=== PATIENT | female | born 1980 | race African-American/Black ===

== ENCOUNTER 2017-04-14 13:05 | Emergency (ER) | payer MEDICAID, OTHER ==
[~2017-04-14] VITALS: Ht 154.9 cm; Wt 116.0 kg
[2017-04-14] MEDS ORDERED: PREDNISONE 20MG TABLET PO STA (15:26)
[2017-04-14] MEDS ORDERED: ALBUTEROL (0.083%) 2.5MG/3ML NEB HHN STA (15:26)
[2017-04-14] MEDS ORDERED: IPRATROPIUM BROMIDE (0.02%) 0.5MG/2.5ML NEB HHN STA (15:26)
[2017-04-14 16:41] VITALS: BP 107/59
== END 2017-04-14 17:54 | disposition home or self-care (01) ==
LOC: ER 15:19
DX: R05 Cough (principal); R06.2 Wheezing; R50.9 Fever, unspecified; J45.909 Unspecified asthma, uncomplicated; F17.200 Nicotine dependence, unspecified, uncomplicated
CPT/HCPCS: 71010; 81025; 94640; 99283; J7512; J7611

== ENCOUNTER 2017-04-16 17:45 | Emergency (ER) | payer MEDICAID ==
[~2017-04-16] VITALS: Ht 154.9 cm; Wt 113.0 kg
[2017-04-16] MEDS ORDERED: IPRATROPIUM BROMIDE (0.02%) 0.5MG/2.5ML NEB HHN STA (18:25)
[2017-04-16] MEDS ORDERED: PREDNISONE 20MG TABLET PO STA (18:25)
[2017-04-16] MEDS ORDERED: ALBUTEROL (0.083%) 2.5MG/3ML NEB HHN STA (18:25)
[2017-04-16 19:31] LABS: HCG SCREEN NEGATIVE
[2017-04-16 20:03] VITALS: BP 144/71
== END 2017-04-16 20:00 | disposition home or self-care (01) ==
LOC: ER 17:45
DX: J45.901 Unspecified asthma with (acute) exacerbation (principal); F17.210 Nicotine dependence, cigarettes, uncomplicated
CPT/HCPCS: 84703; 93005; 94640; 99285; J7512; J7611

== ENCOUNTER 2017-04-18 11:02 | Emergency (ER) | payer MEDICAID ==
[~2017-04-18] VITALS: Ht 154.9 cm; Wt 116.0 kg
[2017-04-18] MEDS ORDERED: DEXAMETHASONE 10 MG/ML VIAL IV STA (12:48)
[2017-04-18] MEDS ORDERED: IPRATROPIUM BROMIDE (0.02%) 0.5MG/2.5ML NEB HHN STA (12:48)
[2017-04-18] MEDS ORDERED: ALBUTEROL (0.083%) 2.5MG/3ML NEB HHN STA (12:48)
[2017-04-18] MEDS ORDERED: BENZONATATE 100MG CAPSULE PO ONE (13:30)
[2017-04-18 14:26] VITALS: BP 116/61
== END 2017-04-18 14:31 | disposition home or self-care (01) ==
LOC: ER 11:59
DX: J45.901 Unspecified asthma with (acute) exacerbation (principal); F17.200 Nicotine dependence, unspecified, uncomplicated; F12.10 Cannabis abuse, uncomplicated
CPT/HCPCS: 93005; 94640; 96374; 99284; J1100; J7611; Z7610

== ENCOUNTER 2017-04-22 06:08 | Emergency (ER) | payer MEDICAID ==
[~2017-04-22] VITALS: Ht 154.9 cm; Wt 116.0 kg
[2017-04-22] MEDS ORDERED: IPRATROPIUM BROMIDE (0.02%) 0.5MG/2.5ML NEB HHN STA (07:08)
[2017-04-22] MEDS ORDERED: ALBUTEROL (0.083%) 2.5MG/3ML NEB HHN STA (07:08)
[2017-04-22] MEDS ORDERED: PREDNISONE 20MG TABLET PO STA (07:08)
[2017-04-22 07:37] VITALS: BP 133/67
[2017-04-22] MEDS ORDERED: IPRATROPIUM BROMIDE (0.02%) 0.5MG/2.5ML NEB ONE (08:00)
[2017-04-22] MEDS ORDERED: ALBUTEROL (0.083%) 2.5MG/3ML NEB ONE (08:00)
== END 2017-04-22 08:37 | disposition home or self-care (01) ==
LOC: ER 06:09
DX: J45.901 Unspecified asthma with (acute) exacerbation (principal); Z87.891 Personal history of nicotine dependence
CPT/HCPCS: 71010; 94640; 99283; J7512; J7611; Z7610

== ENCOUNTER 2017-05-06 14:30 | Emergency (ER) | payer MEDICAID ==
[~2017-05-06] VITALS: Ht 154.9 cm; Wt 117.0 kg
[2017-05-06 15:47] VITALS: BP 119/64
== END 2017-05-06 18:00 | disposition left against medical advice (07) ==
LOC: ER 15:08
DX: R06.02 Shortness of breath (principal); Z53.21 Procedure and treatment not carried out due to patient leaving prior to being seen by health care provider

== ENCOUNTER 2017-05-11 02:39 | Emergency (ER) | payer MEDICAID ==
[~2017-05-11] VITALS: Ht 154.9 cm; Wt 116.3 kg
[2017-05-11] MEDS ORDERED: ALBUTEROL (0.083%) 2.5MG/3ML NEB HHN STA (06:12)
[2017-05-11] MEDS ORDERED: PREDNISONE 20MG TABLET PO STA (06:12)
[2017-05-11] MEDS ORDERED: IPRATROPIUM BROMIDE (0.02%) 0.5MG/2.5ML NEB HHN STA (06:12)
[2017-05-11 06:34] LABS: CLARITY URINE CLOUDY (CLEAR); COLOR URINE YELLOW (YELLOW); KETONES URINE NEGATIVE (NEGATIVE); LEUKOCYTE ESTERASE URINE NEGATIVE (NEGATIVE); NITRITE URINE NEGATIVE (NEGATIVE); OCCULT BLOOD URINE NEGATIVE (NEGATIVE); PROTEIN URINE NEGATIVE (NEGATIVE); SPECIFIC GRAVITY URINE 1.022 (1.005-1.030); UROBILINOGEN URINE 0.2 E.U./dL (0.2-1.0)
[2017-05-11] MEDS ORDERED: KETOROLAC 60MG/2ML VIAL IM STA (06:41)
[2017-05-11 09:27] VITALS: BP 131/69
== END 2017-05-11 09:29 | disposition home or self-care (01) ==
LOC: ER 03:08
DX: R05 Cough (principal); M54.5 Low back pain; R06.2 Wheezing; J45.909 Unspecified asthma, uncomplicated; F17.200 Nicotine dependence, unspecified, uncomplicated
CPT/HCPCS: 71010; 81001; 81025; 94640; 96372; 99285; J1885; J7512; J7611; Z7610

== ENCOUNTER 2017-05-20 15:07 | Emergency (ER) | payer MEDICAID ==
[~2017-05-20] VITALS: Ht 154.9 cm; Wt 116.0 kg
[2017-05-20] MEDS ORDERED: PREDNISONE 20MG TABLET PO STA (16:14)
[2017-05-20] MEDS ORDERED: IPRATROPIUM BROMIDE (0.02%) 0.5MG/2.5ML NEB HHN STA (16:14)
[2017-05-20] MEDS ORDERED: ALBUTEROL (0.083%) 2.5MG/3ML NEB HHN STA (16:14)
[2017-05-20] MEDS ORDERED: ALBUTEROL (0.5%) 2.5MG/0.5ML NEB HHN ONE (16:29)
[2017-05-20] MEDS ORDERED: ACETAMINOPHEN 325MG TABLET PO ONE (16:30)
[2017-05-20 17:23] VITALS: BP 126/82
== END 2017-05-20 18:08 | disposition home or self-care (01) ==
LOC: ER 15:07
DX: J45.901 Unspecified asthma with (acute) exacerbation (principal); F17.200 Nicotine dependence, unspecified, uncomplicated
CPT/HCPCS: 71045; 94640; 99283; J7512; J7611

== ENCOUNTER 2017-05-29 00:33 | Emergency (ER) | payer MEDICAID ==
[~2017-05-29] VITALS: Ht 154.9 cm; Wt 116.0 kg
[2017-05-29] MEDS ORDERED: IBUPROFEN 800MG TABLET PO ONE (06:30)
[2017-05-29] MEDS ORDERED: ALBUTEROL (0.5%) 2.5MG/0.5ML NEB HHN ONE (06:30)
[2017-05-29 06:47] LABS: CLARITY URINE CLEAR (CLEAR); COLOR URINE YELLOW (YELLOW); KETONES URINE NEGATIVE (NEGATIVE); LEUKOCYTE ESTERASE URINE NEGATIVE (NEGATIVE); NITRITE URINE NEGATIVE (NEGATIVE); OCCULT BLOOD URINE NEGATIVE (NEGATIVE); PH URINE 5.5 (4.5-8.0); PROTEIN URINE NEGATIVE (NEGATIVE); SPECIFIC GRAVITY URINE 1.012 (1.005-1.030); UROBILINOGEN URINE 0.2 E.U./dL (0.2-1.0)
[2017-05-29 07:14] LABS: UCG SCREEN NEGATIVE
[2017-05-29 07:39] LABS: BASOPHILS % 0.7 % (0.0-2.0); EOSINOPHILS % 3.1 % (0.0-5.0); HEMATOCRIT. 35.5 % (36.0-48.0); HEMOGLOBIN. 11.3 g/dL (12.0-16.0); LYMPHOCYTES % 23.1 % (20.0-50.0); MEAN CORPUSCULAR HEMOGLOBIN 23.4 pg (28.0-32.0); MEAN CORPUSCULAR VOLUME 73.7 fL (81.0-99.0); MEAN PLATELET VOLUME 7.9 fl (7.4-10.4); MONOCYTES % 4.7 % (2.0-8.0); NEUTROPHILS % 68.4 % (40.0-76.0); PLATELET 349 x1000/uL (130-400); RED BLOOD CELL COUNT 4.81 mill/uL (4.2-5.4); RED CELL DISTRIBUTION WIDTH 18.5 % (11.6-14.6)
[2017-05-29 07:47] LABS: CHLORIDE 106 mEq/L (98-107)
[2017-05-29 08:02] LABS: CARBON DIOXIDE 27 mEq/L (21-32)
[2017-05-29 11:00] VITALS: BP 120/69
== END 2017-05-29 11:21 | disposition home or self-care (01) ==
LOC: ER 00:48
DX: R10.9 Unspecified abdominal pain (principal); D25.9 Leiomyoma of uterus, unspecified; J45.909 Unspecified asthma, uncomplicated; R16.0 Hepatomegaly, not elsewhere classified
CPT/HCPCS: 36415; 74176; 80053; 81003; 81025; 85025; 94640; 99285; J7611; Z7610